=== PATIENT | male | born 1985 | race American Indian/Alaskan Native ===

== ENCOUNTER 2017-02-17 16:27 | Emergency (ER) | payer SELFPAY ==
--- NOTE | 2017-02-17 17:12 | EDM.PDOC ---
ED HPI GENERAL MEDICAL PROBLEM - General Chief Complaint: General Stated Complaint: SORE AND SWOLLEN LIMBS/BREAKING OUT Time Seen by Provider: 02/17/17 16:55 Source of Information: Reports: Patient - History of Present Illness INITIAL COMMENTS - FREE TEXT/NARRATIVE: diagnosed with IV recently having skin lesions, swelling and pain. 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 [No Known Home Meds] 02/17/17 [History] Past Medical History Cardiovascular History: Reports: Hypertension Psychiatric History: Reports: Anxiety Immunologic History: Reports: HIV Social & Family History - Tobacco Use Smoking Status *Q: Former Smoker Years of Tobacco use: 1 Used Tobacco, but Quit: Yes Month Tobacco Last Used: JANUARY 2017 Second Hand Smoke Exposure: No - Caffeine Use Caffeine Use: Reports: None - Alcohol Use Days Per Week of Alcohol Use: 1 Number of Drinks Per Day: 6 Total Drinks Per Week: 6 - Recreational Drug Use Recreational Drug Use: No - Living Situation & Occupation Living situation: Reports: Single Occupation: Employed ED ROS GENERAL - Review of Systems Review Of Systems: ROS reveals no pertinent complaints other than HPI. Constitutional: Reports: No Symptoms HEENT: Reports: No Symptoms Respiratory: Reports: No Symptoms Cardiovascular: Reports: No Symptoms Endocrine: Reports: No Symptoms GI/Abdominal: Reports: Constipation ED EXAM, GENERAL - Physical Exam Exam: See Below Free Text/Narrative:: his body is covered with red lesions. ankles are swollen and inflamed. Exam Limited By: No Limitations General Appearance: Alert, WD/WN Ears: Normal External Exam Throat/Mouth: Normal Inspection Head: Atraumatic Neck: Normal Inspection Respiratory/Chest: No Respiratory Distress Cardiovascular: Normal Peripheral Pulses GI/Abdominal: Normal Bowel Sounds (Male) Exam: No Hernia Rectal (Males) Exam: Normal Exam Back Exam: Normal Inspection Skin Exam: Ecchymosis, Erythema, Increased Warmth, Petechiae, Rash Course - Vital Signs Last Recorded V/S: Last Vital Signs Temp 98.0 F 02/17/17 16:41 Pulse 65 02/17/17 16:41 Resp 16 02/17/17 16:41 BP 147/81 H 02/17/17 16:41 Pulse Ox 94 L 02/17/17 16:41 Departure - Departure Time of Disposition: 17:10 (Will start on prednisone and bactrim for possible cellulitis) Disposition: Home, Self-Care 01 Condition: Fair Clinical Impression: HIV (human immunodeficiency virus infection), Rash, Cellulitis - Discharge Information Forms: ED Department Discharge Additional Instructions: Take your medications as prescribed. follow up with your infection doctor at your regularly scheduled appointment.
== END 2017-02-17 17:15 | disposition home or self-care (01) ==
LOC: CC.ED 16:27
CPT/HCPCS: 99282

== ENCOUNTER 2018-06-23 10:04 | Emergency (ER) | payer BC, MEDICAID ==
[2018-06-23] MEDS ORDERED: fentaNYL 100 MCG/2 ML SDV IVPUSH ONE ×2 (10:42→13:51)
[2018-06-23] MEDS ORDERED: Sodium Chloride 0.9% 1,000 ML IV ONE (10:42)
[2018-06-23 11:04] LABS: CHLORIDE,CL 103 mEq/L (98-106); SODIUM,NA 139 mEq/L (136-145)
[2018-06-23] MEDS ORDERED: Iopamidol 612 MG/ML 100 ML Bottle IVPUSH ONE (11:52)
[2018-06-23] MEDS ORDERED: Ampicillin/Sulbactam Na 3 GM in Sodium Chloride 0.9% 100 ML IV ONE (12:53)
--- NOTE | 2018-06-23 13:18 | EDM.PDOC ---
ED HPI GENERAL MEDICAL PROBLEM - General Chief Complaint: Abdominal Pain Stated Complaint: abdominal pain Time Seen by Provider: 06/23/18 10:55 Source of Information: Reports: Patient History Limitations: Reports: No Limitations - History of Present Illness INITIAL COMMENTS - FREE TEXT/NARRATIVE: Chay is a pleasant 32 year old male with PMH of HIV and pancreatitis, who presents to the ED with c/o mid abdominal pain. He reports starting Friday he developed the abdominal pain. He reports he has not been able to eat or drink much since then. He reports he went to the [facility] ED on 06/21/2018 and told he had gastroenteritis. He reports they gave him IVF and zofran and sent him home. He reports since then his pain has not gotten any better. He reports he tried to drink fluids and gets a flushed feeling. Denies any fever, chills, nausea, vomiting, diarrhea. Reports his pain is located in epigastric/upper abdominal area and radiates to his back. Does report he has had pancreatitis in the past and feels like that's maybe what he has now. Report he last had this in 2011. He reports he has cut back on his ETOH intake drastically since then. He reports he has not had anything to drink since last week. Reports he normally drinks beer. Right Upper Abdominal Pain Score (Numeric/FACES): 10 - Related Data Allergies Allergy/AdvReac Type Severity Reaction Status Date / Time No Known Allergies Allergy Verified 06/23/18 10:21 Home Meds: Home Meds Emtricitab/Rilpivirine/Tenofov [Complera] 1 tab PO DAILY 06/21/18 [History] Past Medical History Cardiovascular History: Reports: Hypertension Gastrointestinal History: Reports: Pancreatitis Psychiatric History: Reports: Anxiety Immunologic History: Reports: HIV Dermatologic History: Reports: Other (See Below) Other Dermatologic History: acne - Infectious Disease History Infectious Disease History: Reports: HIV-Human Immunodeficiency Virus Social & Family History - Tobacco Use Smoking Status *Q: Never Smoker Second Hand Smoke Exposure: Yes - Caffeine Use Caffeine Use: Reports: Soda - Alcohol Use Days Per Week of Alcohol Use: 3 Number of Drinks Per Day: 6 Total Drinks Per Week: 18 - Recreational Drug Use Recreational Drug Use: No - Living Situation & Occupation Living situation: Reports: Single Occupation: Employed ED ROS GENERAL - Review of Systems Review Of Systems: See Below Constitutional: Reports: Decreased Appetite. Denies: Fever, Chills, Weakness, Fatigue Respiratory: Reports: No Symptoms. Denies: Shortness of Breath, Wheezing, Cough , Sputum Cardiovascular: Reports: No Symptoms. Denies: Chest Pain, Dyspnea on Exertion, Edema, Lightheadedness, Syncope Endocrine: Reports: Fatigue GI/Abdominal: Reports: Abdominal Pain, Decreased Appetite. Denies: Constipation , Diarrhea, Flatus, Hematemesis, Hematochezia, Melena, Nausea, Vomiting : Reports: No Symptoms. Denies: Dysuria, Frequency, Urgency Musculoskeletal: Reports: Back Pain Skin: Reports: No Symptoms Neurological: Reports: No Symptoms Psychiatric: Reports: No Symptoms Hematologic/Lymphatic: Reports: No Symptoms Immunologic: Reports: No Symptoms ED EXAM, GI/ABD - Physical Exam Exam: See Below Exam Limited By: No Limitations General Appearance: Alert, WD/WN, Moderate Distress Eyes: Bilateral: EOMI Throat/Mouth: Normal Inspection, Normal Lips, Normal Teeth, Normal Gums, Normal Oropharynx, Normal Voice, No Airway Compromise Head: Atraumatic, Normocephalic Neck: Normal Inspection, Supple, Non-Tender, Full Range of Motion Respiratory/Chest: No Respiratory Distress, Lungs Clear, Normal Breath Sounds, No Accessory Muscle Use, Chest Non-Tender Cardiovascular: Normal Peripheral Pulses, Regular Rate, Rhythm, No Edema, No Gallop, No JVD, No Murmur, No Rub GI/Abdominal Exam: Normal Bowel Sounds, Soft, Guarding, Tender (epigastric/RUQ) Back Exam: Normal Inspection, Full Range of Motion. No: CVA Tenderness (L), CVA Tenderness (R) Neurological: Alert, Oriented, CN II-XII Intact, Normal Cognition, Normal Gait, Normal Reflexes, No Motor/Sensory Deficits Psychiatric: Normal Affect, Normal Mood, Anxious Lymphatic: No Adenopathy Course - Vital Signs Last Recorded V/S: Last Vital Signs Temp 97.8 F 06/23/18 13:49 Pulse 70 06/23/18 13:49 Resp 20 06/23/18 13:49 BP 125/74 06/23/18 13:49 Pulse Ox 100 06/23/18 13:49 - Orders/Labs/Meds Orders: Active Orders 24 hr Category Date Time Status Abdomen Pelvis w Cont [CT] Stat Exams 06/23/18 11:45 Taken LIPASE [REF] Stat Lab 06/23/18 12:30 Received Sodium Chloride 0.9% [Normal Saline] 1,000 ml Med 06/23/18 13:30 Active IV ASDIRECTED Medication Orders Sodium Chloride (Normal Saline) 1,000 mls @ 125 mls/hr IV ASDIRECTED HIWOT Last Admin: 06/23/18 13:51 Dose: 125 mls/hr Labs: Laboratory Tests 06/23/18 06/23/18 06/23/18 Range/Units 10:40 10:40 10:41 WBC 13.8 H (5.0-10.0) 10^3/uL RBC 3.39 L (4.50-6.00) 10^6/uL Hgb 11.2 L (14.0-18.0) g/dL Hct 33.5 L (40.0-54.0) % MCV 98.8 H (82.0-94.0) fL MCH 33.0 H (27.0-32.0) pg MCHC 33.4 (33.0-38.0) g/dL RDW Coeff of Frankie 13.1 (11.0-15.0) % Plt Count 117 L (150-400) 10^3/uL Neut % (Auto) 83.1 (35-85) % Lymph % (Auto) 4.6 L (10-55) % [place] % (Auto) 10.6 (0-16) % Eos % (Auto) 1.4 (0-5) % Baso % (Auto) 0.3 (0-3) % Neut # (Auto) 11.48 H (1.80-7.00) 10^3/uL Lymph # (Auto) 0.63 L (1.00-4.80) 10^3/uL [place] # (Auto) 1.46 H (0.00-0.80) 10^3/uL Eos # (Auto) 0.19 (0.00-0.45) 10^3/uL Baso # (Auto) 0.04 10^3/uL Sodium (136-145) mEq/L Potassium (3.5-5.0) mEq/L Chloride (98-106) mEq/L Carbon Dioxide (21-32) mmol/L BUN (7-18) mg/dL Creatinine (0.7-1.3) mg/dL Est Cr Clr Drug Dosing mL/min Estimated GFR (MDRD) (>=60) mL/min Glucose (75-99) mg/dL Calcium (8.4-10.1) mg/dL Total Bilirubin (0.0-1.0) mg/dL AST (15-37) U/L ALT (12-78) U/L Alkaline Phosphatase (46-116) U/L C-Reactive Protein (0.2-0.8) mg/dL Total Protein (6.4-8.2) g/dL Albumin (3.4-5.0) g/dL Amylase (25-115) U/L Urine Color Yellow (YELLOW) Urine Appearance Clear (CLEAR) Urine pH 6.0 (4.5-8.0) Ur Specific [place] 1.020 (1.003-1.020) Urine Protein 100 H (NEGATIVE) mg/dL Urine Glucose (UA) 250 H (NEGATIVE) mg/dL Urine Ketones Negative (NEGATIVE) mg/dL Urine Occult Blood Large H (NEGATIVE) Urine Nitrite Negative (NEGATIVE) Urine Bilirubin Negative (NEGATIVE) Urine Urobilinogen 1.0 (0.2-1.0) EU/dL Ur Leukocyte Esterase Negative (NEGATIVE) Urine RBC 40-50 H (0-5) /HPF Urine WBC Not seen (0-5) /HPF Hyaline Casts Occasional H (NOT SEEN) /LPF Granular Casts Occasional (NOT SEEN) /LPF RBC Casts Occasional H (NOT SEEN) /LPF Urine Opiates Screen Negative (NEGATIVE) Ur Oxycodone Screen Negative (NEGATIVE) Urine Methadone Screen Negative (NEGATIVE) Ur Barbiturates Screen Negative (NEGATIVE) U Tricyclic Antidepress Negative (NEGATIVE) Ur Phencyclidine Scrn Negative (NEGATIVE) Ur Amphetamine Screen Negative (NEGATIVE) U Methamphetamines Scrn Negative (NEGATIVE) Urine MDMA Screen Negative (NEGATIVE) U Benzodiazepines Scrn Negative (NEGATIVE) Urine Cocaine Screen Negative (NEGATIVE) U Marijuana (THC) Screen Negative (NEGATIVE) 06/23/18 Range/Units 10:50 WBC (5.0-10.0) 10^3/uL RBC (4.50-6.00) 10^6/uL Hgb (14.0-18.0) g/dL Hct (40.0-54.0) % MCV (82.0-94.0) fL MCH (27.0-32.0) pg MCHC (33.0-38.0) g/dL RDW Coeff of Frankie (11.0-15.0) % Plt Count (150-400) 10^3/uL Neut % (Auto) (35-85) % Lymph % (Auto) (10-55) % [place] % (Auto) (0-16) % Eos % (Auto) (0-5) % Baso % (Auto) (0-3) % Neut # (Auto) (1.80-7.00) 10^3/uL Lymph # (Auto) (1.00-4.80) 10^3/uL [place] # (Auto) (0.00-0.80) 10^3/uL Eos # (Auto) (0.00-0.45) 10^3/uL Baso # (Auto) 10^3/uL Sodium 139 (136-145) mEq/L Potassium 3.7 (3.5-5.0) mEq/L Chloride 103 (98-106) mEq/L Carbon Dioxide 25 (21-32) mmol/L BUN 6 L (7-18) mg/dL Creatinine 0.7 (0.7-1.3) mg/dL Est Cr Clr Drug Dosing 167.83 mL/min Estimated GFR (MDRD) > 60 (>=60) mL/min Glucose 192 H D (75-99) mg/dL Calcium 8.6 (8.4-10.1) mg/dL Total Bilirubin 0.7 (0.0-1.0) mg/dL AST 69 H (15-37) U/L ALT 89 H (12-78) U/L Alkaline Phosphatase 134 H (46-116) U/L C-Reactive Protein 9.4 H (0.2-0.8) mg/dL Total Protein 7.0 (6.4-8.2) g/dL Albumin 2.9 L (3.4-5.0) g/dL Amylase 57 (25-115) U/L Urine Color (YELLOW) Urine Appearance (CLEAR) Urine pH (4.5-8.0) Ur Specific [place] (1.003-1.020) Urine Protein (NEGATIVE) mg/dL Urine Glucose (UA) (NEGATIVE) mg/dL Urine Ketones (NEGATIVE) mg/dL Urine Occult Blood (NEGATIVE) Urine Nitrite (NEGATIVE) Urine Bilirubin (NEGATIVE) Urine Urobilinogen (0.2-1.0) EU/dL Ur Leukocyte Esterase (NEGATIVE) Urine RBC (0-5) /HPF Urine WBC (0-5) /HPF Hyaline Casts (NOT SEEN) /LPF Granular Casts (NOT SEEN) /LPF RBC Casts (NOT SEEN) /LPF Urine Opiates Screen (NEGATIVE) Ur Oxycodone Screen (NEGATIVE) Urine Methadone Screen (NEGATIVE) Ur Barbiturates Screen (NEGATIVE) U Tricyclic Antidepress (NEGATIVE) Ur Phencyclidine Scrn (NEGATIVE) Ur Amphetamine Screen (NEGATIVE) U Methamphetamines Scrn (NEGATIVE) Urine MDMA Screen (NEGATIVE) U Benzodiazepines Scrn (NEGATIVE) Urine Cocaine Screen (NEGATIVE) U Marijuana (THC) Screen (NEGATIVE) Meds: Medications Generic Name Dose Route Start Last Admin Trade Name Freq PRN Reason Stop Dose Admin Sodium Chloride 1,000 mls @ 125 mls/hr 06/23/18 13:30 06/23/18 13:51 Normal Saline IV 125 mls/hr ASDIRECTED HIWOT Administration Discontinued Medications Generic Name Dose Route Start Last Admin Trade Name Freq PRN Reason Stop Dose Admin Fentanyl 50 mcg 06/23/18 10:42 06/23/18 11:00 Sublimaze IVPUSH 06/23/18 10:43 50 mcg ONETIME ONE Administration Fentanyl 50 mcg 06/23/18 13:51 Sublimaze IVPUSH 06/23/18 13:52 ONETIME ONE Sodium Chloride 1,000 mls @ 999 mls/hr 06/23/18 10:42 06/23/18 10:59 Normal Saline IV 06/23/18 11:42 999 mls/hr .BOLUS ONE Administration Ampicillin Sodium/Sulbactam 100 mls @ 200 mls/hr 06/23/18 12:53 06/23/18 13: 25 Sodium 3 gm/ Sodium Chloride IV 06/23/18 13:22 200 mls/hr ONETIME ONE Administration Iopamidol 100 ml 06/23/18 11:52 06/23/18 12:11 Isovue-300 (61%) IVPUSH 06/23/18 11:53 137 ml ONETIME ONE Administration - Radiology Interpretation Free Text/Narrative:: Call from radiologist reporting acute appendicitis with appendix dilated to 1.3 cm and mild periappendiceal stranding. Also does have chronic pancreatitis with numerous pseudocysts of the pancreas and greater curvature of the stomach. Unasym ordered. CT Results Date: 06/23/18 CT Results Time: 12:47 - Re-Assessments/Exams Free Text/Narrative Re-Assessment/Exam: 06/23/18 12:47 Call from radiologist reporting acute appendicitis with appendix dilated to 1.3 cm and mild periappendiceal stranding. Also does have chronic pancreatitis with numerous pseudocysts of the pancreas and greater curvature of the stomach. Unasym ordered. 06/23/18 13:[address] findings with patient and father. Discussed need for transfer to area with surgical capabilities. Patient reports he lives in [place] and wishes to transfer to [facility]. 06/23/18 13:24 Consulted with [facility]. Discussed case with Dr. Hernandez (general surgery) who accepted patient for transfer. Will arrange for ALS transfer. Discussed with patient. Risks and benefits of transfer discussed with patient. Risks of transfer include worsening of condition, , MVA enroute. Benefits of transfer include higher level of care & surgical consultation. Risks of nontransfer include worsening of condition, , and no surgical consultation. Benefits of nontransfer include convenience and close to home. Patient verbalized understanding and was agreeable with transfer. Departure - Departure Time of Disposition: 14:46 Disposition: DC/Tfer to [facility] 02 Condition: Good Clinical Impression: Chronic alcoholic pancreatitis, HIV (human immunodeficiency virus infection) Acute appendicitis Qualifiers: Acute appendicitis type: unspecified acute appendicitis type Qualified Code(s) : K35.80 - Unspecified acute appendicitis - Discharge Information *PRESCRIPTION DRUG MONITORING PROGRAM REVIEWED*: Not Applicable *COPY OF PRESCRIPTION DRUG MONITORING REPORT IN PATIENT CHHAYA: Not Applicable Referrals: Daniel Zarate MD [Primary Care Provider] - Forms: ED Department Discharge - Problem List & Annotations (1) Acute appendicitis SNOMED Code(s): 67381150 Code(s): K35.80 - UNSPECIFIED ACUTE APPENDICITIS Status: Acute Qualifiers: Acute appendicitis type: unspecified acute appendicitis type Qualified Code (s): K35.80 - Unspecified acute appendicitis (2) Chronic alcoholic pancreatitis SNOMED Code(s): 050174891 Code(s): K86.0 - ALCOHOL-INDUCED CHRONIC PANCREATITIS Status: Acute (3) HIV (human immunodeficiency virus infection) SNOMED Code(s): 32426578 Code(s): B20 - HUMAN IMMUNODEFICIENCY VIRUS [HIV] DISEASE Status: Acute - Problem List Review Problem List Initiated/Reviewed/Updated: Yes - My Orders Last 24 Hours: My Active Orders 06/23/18 11:45 Abdomen Pelvis w Cont [CT] Stat 06/23/18 12:30 LIPASE [REF] Stat 06/23/18 13:30 Sodium Chloride 0.9% [Normal Saline] 1,000 ml IV ASDIRECTED - Assessment/Plan Last 24 Hours: My Active Orders 06/23/18 11:45 Abdomen Pelvis w Cont [CT] Stat 06/23/18 12:30 LIPASE [REF] Stat 06/23/18 13:30 Sodium Chloride 0.9% [Normal Saline] 1,000 ml IV ASDIRECTED Plan: Transfer to [facility] via [facility].
[2018-06-23] MEDS ORDERED: Sodium Chloride 0.9% 1,000 ML IV SCH (13:30)
[2018-06-23 13:50] VITALS: BP 125/74
== END 2018-06-23 14:45 ==
LOC: CC.ED 10:04
DX: B20 Human immunodeficiency virus [HIV] disease (principal); K86.0 Alcohol-induced chronic pancreatitis; K35.80 Unspecified acute appendicitis; I10 Essential (primary) hypertension; Z77.22 Contact with and (suspected) exposure to environmental tobacco smoke (acute) (chronic)
CPT/HCPCS: 36415; 74177; 80053; 80305; 81001; 82150; 83690; 85025; 86140; 96361; 96365; 96375; 96376; 99285; J0295; J3010; J7030; J7050; Q9967

== ENCOUNTER 2018-08-09 14:39 | Emergency (ER) | payer MEDICAID ==
[2018-08-09] MEDS ORDERED: cefTRIAXone 2 GM Vial IVPUSH ONE (15:08)
[2018-08-09] MEDS ORDERED: Sodium Chloride 0.9% 1,000 ML IV ONE (15:08)
[2018-08-09 15:14] LABS: CHLORIDE,CL 98 mEq/L (98-106); SODIUM,NA 134 mEq/L (136-145)
--- NOTE | 2018-08-09 15:21 | EDM.PDOC ---
ED HPI GENERAL MEDICAL PROBLEM - General Chief Complaint: Abdominal Pain Stated Complaint: "I'm having abdominal pain" Time Seen by Provider: 08/09/18 14:50 Source of Information: Reports: Patient History Limitations: Reports: No Limitations - History of Present Illness INITIAL COMMENTS - FREE TEXT/NARRATIVE: This patient is a 32 year old that presents to the ER. Patient reports having abdominal pain since Friday, that has progressively become worse in nature. The patient reports having nausea and vomited x1. The patient reports that he feels like he has a fever. The patient reprots he has hostory of HIV, Appendix removed in June, and pancreatitis. He reports this feels like his pancreatitis. The patient reports he drinks "a lot" of beer at night. He reports drinking every night. The patient denies drug use. Patent reports that he has been having urine that looks like it has blood in it. Patient denies lockett, dizziness, d, cp, soa, back pain, rashes, bowel changes. Onset Date: 08/07/18 Duration: Day(s): (2), Getting Worse Quality: Reports: Ache Severity: Moderate Improves with: Reports: None Worsens with: Reports: None Associated Symptoms: Reports: Fever/Chills, Loss of Appetite, Nausea/Vomiting. Denies: Confusion, Chest Pain, Cough, cough w sputum, Diaphoresis, Headaches, Malaise, Rash, Seizure, Shortness of Breath, Syncope, Weakness - Related Data Allergies Allergy/AdvReac Type Severity Reaction Status Date / Time No Known Allergies Allergy Verified 08/09/18 14:50 Home Meds: Home Meds Emtricitab/Rilpivirine/Tenofov [Complera] 1 tab PO DAILY 06/21/18 [History] Past Medical History Cardiovascular History: Reports: Hypertension Gastrointestinal History: Reports: Pancreatitis Psychiatric History: Reports: Anxiety Immunologic History: Reports: HIV Dermatologic History: Reports: Other (See Below) Other Dermatologic History: acne - Infectious Disease History Infectious Disease History: Reports: HIV-Human Immunodeficiency Virus Social & Family History - Tobacco Use Smoking Status *Q: Former Smoker Used Tobacco, but Quit: Yes Month/Year Tobacco Last Used: 2015 Second Hand Smoke Exposure: No - Caffeine Use Caffeine Use: Reports: Soda - Alcohol Use Days Per Week of Alcohol Use: 7 Number of Drinks Per Day: 12 Total Drinks Per Week: 84 - Recreational Drug Use Recreational Drug Use: No - Living Situation & Occupation Living situation: Reports: Single Occupation: Employed ED ROS GENERAL - Review of Systems Review Of Systems: See Below Constitutional: Reports: Fever, Chills HEENT: Reports: No Symptoms Respiratory: Reports: No Symptoms Cardiovascular: Reports: No Symptoms Endocrine: Reports: No Symptoms GI/Abdominal: Reports: Abdominal Pain, Nausea, Vomiting. Denies: Diarrhea : Reports: Hematuria Musculoskeletal: Reports: No Symptoms Skin: Reports: No Symptoms Neurological: Reports: No Symptoms Psychiatric: Reports: No Symptoms Hematologic/Lymphatic: Reports: No Symptoms Immunologic: Reports: No Symptoms ED EXAM, GI/ABD - Physical Exam Exam: See Below Exam Limited By: No Limitations General Appearance: Alert, WD/WN, No Apparent Distress, Other (appears chronically ill) Eyes: Bilateral: Normal Appearance Ears: Normal External Exam, Normal Canal, Hearing Grossly Normal, Normal TMs Nose: Normal Inspection, Normal Mucosa, No Blood Throat/Mouth: Normal Inspection, Normal Lips, Normal Teeth, Normal Gums, Normal Oropharynx, Normal Voice, No Airway Compromise Head: Atraumatic, Normocephalic Neck: Normal Inspection, Supple, Non-Tender, Full Range of Motion Respiratory/Chest: No Respiratory Distress, Lungs Clear, Normal Breath Sounds, No Accessory Muscle Use, Chest Non-Tender Cardiovascular: Normal Peripheral Pulses, Regular Rate, Rhythm, No Edema, No Gallop, No JVD, No Murmur, No Rub GI/Abdominal Exam: Normal Bowel Sounds, Soft, No Organomegaly, No Distention, No Abnormal Bruit, No Mass, Tender (generalized. ) Back Exam: Normal Inspection, Full Range of Motion. No: CVA Tenderness (L), CVA Tenderness (R) Extremities: Normal Inspection, Normal Range of Motion, Non-Tender, No Pedal Edema, Normal Capillary Refill Neurological: Alert, Oriented, Normal Gait, No Motor/Sensory Deficits Psychiatric: Normal Affect, Normal Mood Skin Exam: Warm, Dry, Intact, Normal Color, No Rash Lymphatic: No Adenopathy Course - Vital Signs Last Recorded V/S: Last Vital Signs Temp 99.7 F 08/09/18 15:24 Pulse 126 H 08/09/18 15:24 Resp 20 08/09/18 15:24 BP 140/90 08/09/18 15:24 Pulse Ox 99 08/09/18 15:24 - Orders/Labs/Meds Orders: Active Orders 24 hr Category Date Time Status Abdomen Pelvis w Cont [CT] Routine Exams 08/09/18 Taken CULTURE BLOOD [BC] Stat Lab 08/09/18 14:50 Received CULTURE BLOOD [BC] Stat Lab 08/09/18 14:55 Received DRUG SCREEN URINE BIORAD [URCHEM] Stat Lab 08/09/18 15:19 Ordered HEPATITIS PANEL (4) [REF] Stat Lab 08/09/18 14:55 Received Blood Culture x2 Reflex Set [OM.PC] Stat Oth 08/09/18 14:47 Ordered Labs: Laboratory Tests 08/09/18 08/09/18 08/09/18 Range/Units 14:50 14:50 14:55 WBC 17.6 H (5.0-10.0) 10^3/uL RBC 3.74 L (4.50-6.00) 10^6/uL Hgb 12.0 L (14.0-18.0) g/dL Hct 35.3 L (40.0-54.0) % MCV 94.4 H (82.0-94.0) fL MCH 32.1 H (27.0-32.0) pg MCHC 34.0 (33.0-38.0) g/dL RDW Coeff of Frankie 13.2 (11.0-15.0) % Plt Count 91 L (150-400) 10^3/uL Add Manual Diff Yes Neutrophils % (Manual) 90 H (35-85) % Band Neutrophils % 0 (0-5) % Lymphocytes % (Manual) 6 L (21-55) % Monocytes % (Manual) 4 (2-12) % Sodium 134 L (136-145) mEq/L Potassium 3.8 (3.5-5.0) mEq/L Chloride 98 (98-106) mEq/L Carbon Dioxide 24 (21-32) mmol/L BUN 7 (7-18) mg/dL Creatinine 0.6 L (0.7-1.3) mg/dL Est Cr Clr Drug Dosing TNP Estimated GFR (MDRD) > 60 (>=60) mL/min Glucose 145 H (75-99) mg/dL Lactic Acid (0.4-2.0) mmol/L Calcium 8.9 (8.4-10.1) mg/dL Total Bilirubin 2.6 H (0.0-1.0) mg/dL AST 104 H (15-37) U/L ALT 83 H (12-78) U/L Alkaline Phosphatase 231 H (46-116) U/L Total Protein 8.4 H (6.4-8.2) g/dL Albumin 3.1 L (3.4-5.0) g/dL Amylase 39 (25-115) U/L Urine Color (YELLOW) Urine Appearance (CLEAR) Urine pH (4.5-8.0) Ur Specific [place] (1.003-1.020) Urine Protein (NEGATIVE) mg/dL Urine Glucose (UA) (NEGATIVE) mg/dL Urine Ketones (NEGATIVE) mg/dL Urine Occult Blood (NEGATIVE) Urine Nitrite (NEGATIVE) Urine Bilirubin (NEGATIVE) Urine Urobilinogen (0.2-1.0) EU/dL Ur Leukocyte Esterase (NEGATIVE) Urine RBC (0-5) /HPF Urine WBC (0-5) /HPF Ur Epithelial Cells (NOT SEEN) /HPF Urine Mucus (NOT SEEN) /HPF Urine Opiates Screen Negative (NEGATIVE) Ur Oxycodone Screen Negative (NEGATIVE) Urine Methadone Screen Negative (NEGATIVE) Ur Barbiturates Screen Negative (NEGATIVE) U Tricyclic Antidepress Negative (NEGATIVE) Ur Phencyclidine Scrn Negative (NEGATIVE) Ur Amphetamine Screen Negative (NEGATIVE) U Methamphetamines Scrn Negative (NEGATIVE) Urine MDMA Screen Negative (NEGATIVE) U Benzodiazepines Scrn Negative (NEGATIVE) Urine Cocaine Screen Negative (NEGATIVE) U Marijuana (THC) Screen Positive H (NEGATIVE) 08/09/18 08/09/18 Range/Units 14:55 14:56 WBC (5.0-10.0) 10^3/uL RBC (4.50-6.00) 10^6/uL Hgb (14.0-18.0) g/dL Hct (40.0-54.0) % MCV (82.0-94.0) fL MCH (27.0-32.0) pg MCHC (33.0-38.0) g/dL RDW Coeff of Frankie (11.0-15.0) % Plt Count (150-400) 10^3/uL Add Manual Diff Neutrophils % (Manual) (35-85) % Band Neutrophils % (0-5) % Lymphocytes % (Manual) (21-55) % Monocytes % (Manual) (2-12) % Sodium (136-145) mEq/L Potassium (3.5-5.0) mEq/L Chloride (98-106) mEq/L Carbon Dioxide (21-32) mmol/L BUN (7-18) mg/dL Creatinine (0.7-1.3) mg/dL Est Cr Clr Drug Dosing Estimated GFR (MDRD) (>=60) mL/min Glucose (75-99) mg/dL Lactic Acid 1.1 (0.4-2.0) mmol/L Calcium (8.4-10.1) mg/dL Total Bilirubin (0.0-1.0) mg/dL AST (15-37) U/L ALT (12-78) U/L Alkaline Phosphatase (46-116) U/L Total Protein (6.4-8.2) g/dL Albumin (3.4-5.0) g/dL Amylase (25-115) U/L Urine Color Dark yellow (YELLOW) Urine Appearance Slightly cloudy (CLEAR) Urine pH 7.0 (4.5-8.0) Ur Specific [place] 1.020 (1.003-1.020) Urine Protein 100 H (NEGATIVE) mg/dL Urine Glucose (UA) 100 H (NEGATIVE) mg/dL Urine Ketones 40 H (NEGATIVE) mg/dL Urine Occult Blood Moderate H (NEGATIVE) Urine Nitrite Positive H (NEGATIVE) Urine Bilirubin Negative (NEGATIVE) Urine Urobilinogen >=8.0 H (0.2-1.0) EU/dL Ur Leukocyte Esterase Negative (NEGATIVE) Urine RBC 20-30 H (0-5) /HPF Urine WBC Not seen (0-5) /HPF Ur Epithelial Cells Few H (NOT SEEN) /HPF Urine Mucus Few H (NOT SEEN) /HPF Urine Opiates Screen (NEGATIVE) Ur Oxycodone Screen (NEGATIVE) Urine Methadone Screen (NEGATIVE) Ur Barbiturates Screen (NEGATIVE) U Tricyclic Antidepress (NEGATIVE) Ur Phencyclidine Scrn (NEGATIVE) Ur Amphetamine Screen (NEGATIVE) U Methamphetamines Scrn (NEGATIVE) Urine MDMA Screen (NEGATIVE) U Benzodiazepines Scrn (NEGATIVE) Urine Cocaine Screen (NEGATIVE) U Marijuana (THC) Screen (NEGATIVE) Meds: Medications Discontinued Medications Generic Name Dose Route Start Last Admin Trade Name Freq PRN Reason Stop Dose Admin Ceftriaxone Sodium 2 gm 08/09/18 15:08 08/09/18 15:38 Rocephin IVPUSH 08/09/18 15:09 2 gm ONETIME ONE Administration Sodium Chloride 1,000 mls @ 1,000 mls/hr 08/09/18 15:08 08/09/18 15:27 Normal Saline IV 08/09/18 16:07 1,000 mls/hr .BOLUS ONE Administration Morphine Sulfate 4 mg 08/09/18 15:25 08/09/18 15:32 Morphine IVPUSH 08/09/18 15:26 4 mg ONETIME ONE Administration Ondansetron HCl 4 mg 08/09/18 15:25 08/09/18 15:29 Zofran IVPUSH 08/09/18 15:26 4 mg NOW STA Administration - Radiology Interpretation Free Text/Narrative:: CT Abd/Pelvis: Discussed with radiologist: Enlarged pseudocysts to the pancreas. Frances liver. No acute findings. CT Results Date: 08/09/18 CT Results Time: 16:10 - Re-Assessments/Exams Free Text/Narrative Re-Assessment/Exam: 08/09/18 16:16 Patient educated to followup with primary care provider for f/u of pancreatic cysts and f/u of UTI, ER visit. HR 90 now. Afebrile now. Departure - Departure Time of Disposition: 16:17 Disposition: Home, Self-Care 01 Condition: Fair Clinical Impression: Chronic alcoholic pancreatitis, HIV (human immunodeficiency virus infection) Pancreatitis Qualifiers: Chronicity: chronic Pancreatitis type: alcohol induced Qualified Code(s): K86.0 - Alcohol-induced chronic pancreatitis UTI (urinary tract infection) Qualifiers: Urinary tract infection type: acute cystitis Hematuria presence: with hematuria Qualified Code(s): N30.01 - Acute cystitis with hematuria - Discharge Information *PRESCRIPTION DRUG MONITORING PROGRAM REVIEWED*: No *COPY OF PRESCRIPTION DRUG MONITORING REPORT IN PATIENT CHHAYA: No Instructions: How to Care for Yourself When You Have HIV, Urinary Tract Infection, Adult, Chronic Pancreatitis Forms: ED Department Discharge Additional Instructions: Followup with your primary care provider Friday Return to the ER for worsening of condition or any emergent concerns Increase fluids No drinking alcohol Cipro 500mg 1 pill twice a day for 14 days #28 no refill Pyridim 200mg 1 pill three times a day for 2 days #6 no refill Motrin for pain and fever as needed - My Orders Last 24 Hours: My Active Orders 08/09/18 Abdomen Pelvis w Cont [CT] Routine 08/09/18 14:47 Blood Culture x2 Reflex Set [OM.PC] Stat 08/09/18 14:50 CULTURE BLOOD [BC] Stat 08/09/18 14:55 CULTURE BLOOD [BC] Stat HEPATITIS PANEL (4) [REF] Stat 08/09/18 15:19 DRUG SCREEN URINE BIORAD [URCHEM] Stat - Assessment/Plan Last 24 Hours: My Active Orders 08/09/18 Abdomen Pelvis w Cont [CT] Routine 08/09/18 14:47 Blood Culture x2 Reflex Set [OM.PC] Stat 08/09/18 14:50 CULTURE BLOOD [BC] Stat 08/09/18 14:55 CULTURE BLOOD [BC] Stat HEPATITIS PANEL (4) [REF] Stat 08/09/18 15:19 DRUG SCREEN URINE BIORAD [URCHEM] Stat Plan: PLEASE SEE RN NOTE FOR PFSH.
[2018-08-09] MEDS ORDERED: Ondansetron 4 MG/2 ML SDV IVPUSH STA (15:25)
[2018-08-09] MEDS ORDERED: Morphine 4 MG/ML Syringe IVPUSH ONE (15:25)
[2018-08-09 15:27] VITALS: BP 140/90
== END 2018-08-09 16:55 | disposition home or self-care (01) ==
LOC: CC.ED 14:39
DX: K86.0 Alcohol-induced chronic pancreatitis (principal); B20 Human immunodeficiency virus [HIV] disease; N30.01 Acute cystitis with hematuria; I10 Essential (primary) hypertension; Z87.891 Personal history of nicotine dependence
CPT/HCPCS: 36415; 74177; 80053; 80074; 80305-QW; 81001; 82150; 83605; 85025; 87040; 87086; 96361; 96374; 96375; 99284; J0696; J2270; J2405; J7030; Q9967

== ENCOUNTER 2019-04-11 11:30 | Emergency (ER) | payer SELFPAY ==
[2019-04-11 11:33] VITALS: BP 119/80; PULSE 67
--- NOTE | 2019-04-11 12:03 | EDM.PDOC ---
ED HPI GENERAL MEDICAL PROBLEM - General Chief Complaint: General Stated Complaint: weakness Time Seen by Provider: 04/11/19 11:47 Source of Information: Reports: Patient History Limitations: Reports: No Limitations - History of Present Illness INITIAL COMMENTS - FREE TEXT/NARRATIVE: This patient is a 33 year old male that presents to the ER. Patient reports that for the last 1 week having lightheadedness and generally feeling weak. Patient reports that he was seen by [facility] and told nothing was wrong on Friday. Patient reports that he has HIV. Patient reports that he has not taken his HIV medications since July. Patient reports the last time he got a CD4 level drawn was in July. Patient reports that he has called clinic several times to obtain this lab draw, but its also is reported patient has not shown up to clinic appointments. The patient reports that he is scheduled to get the lab drawn here tomorrow. I asked lab about drawing today, but the lab is a send out, and only has survival of 2 days, so unable to draw this lab today. Educated patient about showing up tomorrow for this lab draw. I will order some basic labs and urine today. The patient denies lockett, n, v, d, f, cp, soa, abd pain , congestion, drainage, urinary/bowel changes, rashes, open infected wounds. Onset Date: 04/04/19 Duration: Week(s): (1) Severity: Mild Improves with: Reports: None Worsens with: Reports: None Associated Symptoms: Reports: Weakness (generally). Denies: Confusion, Chest Pain, Cough, cough w sputum, Diaphoresis, Fever/Chills, Headaches, Loss of Appetite, Malaise, Nausea/Vomiting, Rash, Seizure, Shortness of Breath, Syncope - Related Data Allergies Allergy/AdvReac Type Severity Reaction Status Date / Time No Known Allergies Allergy Verified 04/11/19 11:33 Home Meds: Home Meds Ferrous Sulfate [Iron] 2 tab PO DAILY 04/11/19 [History] Past Medical History Cardiovascular History: Reports: Hypertension Gastrointestinal History: Reports: Pancreatitis Psychiatric History: Reports: Anxiety Immunologic History: Reports: HIV Dermatologic History: Reports: Other (See Below) Other Dermatologic History: acne - Infectious Disease History Infectious Disease History: Reports: HIV-Human Immunodeficiency Virus - Past Surgical History GI Surgical History: Reports: Other (See Below) Other GI Surgeries/Procedures: pancreas and spleen procedures Social & Family History - Family History Family Medical History: Noncontributory - Tobacco Use Smoking Status *Q: Current Some Day Smoker Years of Tobacco use: 5 Packs/Tins Daily: 0 - Caffeine Use Caffeine Use: Reports: None - Recreational Drug Use Recreational Drug Use: No - Living Situation & Occupation Living situation: Reports: Single Occupation: Employed ED ROS GENERAL - Review of Systems Review Of Systems: See Below Constitutional: Reports: Weakness (generally) HEENT: Reports: No Symptoms Respiratory: Reports: No Symptoms Cardiovascular: Reports: Lightheadedness Endocrine: Reports: No Symptoms GI/Abdominal: Reports: No Symptoms : Reports: No Symptoms Musculoskeletal: Reports: No Symptoms Skin: Reports: No Symptoms Neurological: Reports: No Symptoms Psychiatric: Reports: No Symptoms Hematologic/Lymphatic: Reports: No Symptoms Immunologic: Reports: No Symptoms ED EXAM, GENERAL - Physical Exam Exam: See Below Exam Limited By: No Limitations General Appearance: Alert, WD/WN, No Apparent Distress Eye Exam: Bilateral Eye: Normal Inspection, PERRL Ears: Normal External Exam, Normal Canal, Hearing Grossly Normal, Normal TMs Ear Exam: Bilateral Ear: Auricle Normal, Canal Normal, TM normal Nose: Normal Inspection, Normal Mucosa, No Blood Throat/Mouth: Normal Inspection, Normal Lips, Normal Teeth, Normal Gums, Normal Oropharynx, No Airway Compromise Head: Atraumatic, Normocephalic Neck: Normal Inspection, Supple, Non-Tender, Full Range of Motion Respiratory/Chest: No Respiratory Distress, Lungs Clear, Normal Breath Sounds, No Accessory Muscle Use, Chest Non-Tender Cardiovascular: Normal Peripheral Pulses, Regular Rate, Rhythm, No Edema, No Gallop, No JVD, No Murmur, No Rub Peripheral Pulses: 2+: Radial (L), Radial (R), Posterior Tibial (L), Posterior Tibial (R) GI/Abdominal: Normal Bowel Sounds, Soft, No Distention, Pelvis Stable, Tender ( mildly diffuse). No: Guarding, Rigid, Rebound Neurological: Alert, Oriented, Normal Cognition, Normal Gait (ambulated to bathroom without difficulty or assistance. ), No Motor/Sensory Deficits Psychiatric: Normal Affect, Normal Mood Skin Exam: Warm, Dry, Intact, Normal Color, No Rash Lymphatic: No Adenopathy Course - Vital Signs Last Recorded V/S: Last Vital Signs Temp 97.4 F 04/11/19 11:31 Pulse 67 09/08/19 11:31 Resp 16 04/11/19 11:31 BP 119/80 04/11/19 11:31 Pulse Ox 100 04/11/19 11:31 - Orders/Labs/Meds Labs: Laboratory Tests 04/11/19 04/11/19 04/11/19 Range/Units 11:58 11:58 12:07 WBC 6.8 (5.0-10.0) 10^3/uL RBC 3.70 L (4.50-6.00) 10^6/uL Hgb 11.3 L (14.0-18.0) g/dL Hct 33.9 L (40.0-54.0) % MCV 91.6 (82.0-94.0) fL MCH 30.5 (27.0-32.0) pg MCHC 33.3 (33.0-38.0) g/dL RDW Coeff of Frankie 16.8 H (11.0-15.0) % Plt Count 55 L (150-400) 10^3/uL Neut % (Auto) 67.1 (35-85) % Lymph % (Auto) 17.6 (10-55) % [place] % (Auto) 13.7 (0-16) % Eos % (Auto) 1.3 (0-5) % Baso % (Auto) 0.3 (0-3) % Neut # (Auto) 4.57 (1.80-7.00) 10^3/uL Lymph # (Auto) 1.20 (1.00-4.80) 10^3/uL [place] # (Auto) 0.93 H (0.00-0.80) 10^3/uL Eos # (Auto) 0.09 (0.00-0.45) 10^3/uL Baso # (Auto) 0.02 10^3/uL Sodium 139 (136-145) mEq/L Potassium 3.8 (3.5-5.0) mEq/L Chloride 103 (98-106) mEq/L Carbon Dioxide 27 (21-32) mmol/L BUN 3 L (7-18) mg/dL Creatinine 0.6 L (0.7-1.3) mg/dL Est Cr Clr Drug Dosing 158.76 mL/min Estimated GFR (MDRD) > 60 (>=60) mL/min Glucose 123 H D (75-99) mg/dL Calcium 8.7 (8.4-10.1) mg/dL Total Bilirubin 0.4 (0.0-1.0) mg/dL AST 52 H (15-37) U/L ALT 51 (12-78) U/L Alkaline Phosphatase 248 H (46-116) U/L Total Protein 7.1 (6.4-8.2) g/dL Albumin 2.7 L (3.4-5.0) g/dL Urine Color Yellow (YELLOW) Urine Appearance Clear (CLEAR) Urine pH 6.0 (4.5-8.0) Ur Specific [place] <= 1.005 (1.003-1.020) Urine Protein Negative (NEGATIVE) mg/dL Urine Glucose (UA) Negative (NEGATIVE) mg/dL Urine Ketones Negative (NEGATIVE) mg/dL Urine Occult Blood Negative (NEGATIVE) Urine Nitrite Negative (NEGATIVE) Urine Bilirubin Negative (NEGATIVE) Urine Urobilinogen 1.0 (0.2-1.0) EU/dL Ur Leukocyte Esterase Negative (NEGATIVE) Departure - Departure Time of Disposition: 12:30 Disposition: Home, Self-Care 01 Condition: Good Clinical Impression: Generalized weakness HIV (human immunodeficiency virus infection) Qualifiers: HIV symptom status: asymptomatic Qualified Code(s): Z21 - Asymptomatic human immunodeficiency virus [HIV] infection status - Discharge Information *PRESCRIPTION DRUG MONITORING PROGRAM REVIEWED*: Not Applicable *COPY OF PRESCRIPTION DRUG MONITORING REPORT IN PATIENT CHHAYA: Not Applicable Instructions: CD4 Count Test, Weakness, [id number] Referrals: PCP,None [Primary Care Provider] - Forms: ED Department Discharge Additional Instructions: Followup with your primary care provider Return to the ER for worsening of condition or any emergent concerns Increase fluids Rest Have CD4 lab drawn tomorrow - Assessment/Plan Plan: PLEASE SEE RN NOTE FOR PFSH.
[2019-04-11 12:22] LABS: CHLORIDE,CL 103 mEq/L (98-106); SODIUM,NA 139 mEq/L (136-145)
== END 2019-04-11 12:38 | disposition home or self-care (01) ==
LOC: CC.ED 11:30
DX: R53.1 Weakness (principal); I10 Essential (primary) hypertension; F17.200 Nicotine dependence, unspecified, uncomplicated; Z21 Asymptomatic human immunodeficiency virus [HIV] infection status
CPT/HCPCS: 36415; 80053; 81003; 85025; 99284

== ENCOUNTER 2019-06-06 15:15 | Emergency (ER) | payer SELFPAY ==
[2019-06-06 15:59] LABS: CHLORIDE,CL 103 mEq/L (98-106); SODIUM,NA 138 mEq/L (136-145)
[2019-06-06] MEDS ORDERED: Ondansetron 4 MG/2 ML SDV IVPUSH STA (16:59)
[2019-06-06] MEDS ORDERED: Iopamidol 755 Mg/ML 100 ML Bottle IVPUSH ONE (17:09)
[2019-06-06] MEDS ORDERED: Sodium Chloride 0.9% 250 ML ONE (17:14)
--- NOTE | 2019-06-06 17:40 | EDM.PDOC ---
ED HPI GENERAL MEDICAL PROBLEM - General Chief Complaint: Gastrointestinal Problem Stated Complaint: "I HAVE PANCREATITIS" Time Seen by Provider: 06/06/19 16:10 Source of Information: Reports: Patient History Limitations: Reports: No Limitations - History of Present Illness INITIAL COMMENTS - FREE TEXT/NARRATIVE: This patient is a 33 year old male that presents to the ER. Patient reports that since last night having abdominal pain, RUQ. He reports having 4 diarrhea episodes and several episodes of vomiting. Patient reports that he feels a little short of breath. Patient reports that he is unaware if blood in vomit or stool, as he says he never looks at it. Patient has hx of HIV and pancreatitis. Patient also reports having history of bleeding from spleen over the summer. Onset Date: 06/05/19 Duration: Day(s): (1), Getting Worse Location: Reports: Abdomen Severity: Moderate Improves with: Reports: None Worsens with: Reports: None Associated Symptoms: Reports: Loss of Appetite, Nausea/Vomiting, Shortness of Breath, Weakness (generally). Denies: Confusion, Chest Pain, Cough, cough w sputum, Diaphoresis, Fever/Chills, Headaches, Malaise, Rash, Seizure, Syncope Right Upper Abdomen Pain Score (Numeric/FACES): 5 - Related Data Allergies Allergy/AdvReac Type Severity Reaction Status Date / Time No Known Allergies Allergy Verified 06/06/19 15:39 Home Meds: Home Meds Ferrous Sulfate [Iron] 2 tab PO DAILY 04/11/19 [History] Past Medical History Cardiovascular History: Reports: Hypertension Gastrointestinal History: Reports: Pancreatitis Psychiatric History: Reports: Anxiety Immunologic History: Reports: HIV Dermatologic History: Reports: Other (See Below) Other Dermatologic History: acne - Infectious Disease History Infectious Disease History: Reports: HIV-Human Immunodeficiency Virus - Past Surgical History GI Surgical History: Reports: Other (See Below) Other GI Surgeries/Procedures: pancreas and spleen procedures Social & Family History - Family History Family Medical History: Noncontributory - Tobacco Use Smoking Status *Q: Never Smoker - Caffeine Use Caffeine Use: Reports: None - Alcohol Use Days Per Week of Alcohol Use: 7 Number of Drinks Per Day: 12 Total Drinks Per Week: 84 Date of Last Drink: 06/06/19 - Recreational Drug Use Recreational Drug Use: No - Living Situation & Occupation Living situation: Reports: Single Occupation: Employed ED ROS GENERAL - Review of Systems Review Of Systems: See Below Constitutional: Reports: Malaise, Weakness, Fatigue, Diaphoresis, Decreased Appetite HEENT: Reports: No Symptoms Respiratory: Reports: Shortness of Breath. Denies: Cough Cardiovascular: Reports: No Symptoms. Denies: Chest Pain, Dyspnea on Exertion, Edema, Lightheadedness, Palpitations, Syncope Endocrine: Reports: No Symptoms GI/Abdominal: Reports: Abdominal Pain, Diarrhea, Nausea, Vomiting : Reports: No Symptoms Musculoskeletal: Reports: No Symptoms Skin: Reports: No Symptoms Neurological: Reports: No Symptoms Psychiatric: Reports: No Symptoms Hematologic/Lymphatic: Reports: No Symptoms Immunologic: Reports: No Symptoms ED EXAM, GI/ABD - Physical Exam Exam: See Below Exam Limited By: No Limitations General Appearance: Alert, WD/WN, Thin, Other (appears chronically ill) Eyes: Bilateral: Pale Conjunctiva Ears: Normal External Exam, Normal Canal, Hearing Grossly Normal, Normal TMs Nose: Normal Inspection, Normal Mucosa, No Blood Throat/Mouth: Normal Inspection, Normal Lips, Normal Teeth, Normal Gums, Normal Oropharynx, Normal Voice, No Airway Compromise Head: Atraumatic, Normocephalic Neck: Normal Inspection, Supple, Non-Tender, Full Range of Motion Respiratory/Chest: No Respiratory Distress, Lungs Clear, Normal Breath Sounds, No Accessory Muscle Use Cardiovascular: Normal Peripheral Pulses, No Edema, No Gallop, No JVD, No Murmur , No Rub, Tachycardia (120 on exam) GI/Abdominal Exam: Normal Bowel Sounds, Soft, No Organomegaly, No Distention, No Abnormal Bruit, No Mass, Pelvis Stable, Tender (RUQ). No: Guarding (Male) Exam: Deferred Rectal (Males) Exam: Deferred Back Exam: Normal Inspection, Full Range of Motion Extremities: Normal Inspection, Normal Range of Motion, Non-Tender, No Pedal Edema, Normal Capillary Refill Neurological: Alert, Oriented, Normal Cognition, Normal Gait, No Motor/Sensory Deficits Psychiatric: Anxious Skin Exam: Warm, Dry, Intact, No Rash, Pallor Lymphatic: No Adenopathy Course - Vital Signs Last Recorded V/S: Last Vital Signs Temp 97.8 F 06/06/19 17:47 Pulse 107 H 06/06/19 17:47 Resp 16 06/06/19 17:47 BP 121/69 06/06/19 17:47 Pulse Ox 100 06/06/19 17:47 - Orders/Labs/Meds Orders: Active Orders 24 hr Category Date Time Status Abdomen Pelvis w Cont [CT] Stat Exams 06/06/19 17:01 Taken RED BLOOD CELLS LP [BBK] Stat Lab 06/06/19 15:39 Results TYPE AND SCREEN [BBK] Stat Lab 06/06/19 15:39 Results Labs: Laboratory Tests 06/06/19 06/06/19 06/06/19 Range/Units 15:39 15:40 15:40 WBC 10.9 H (5.0-10.0) 10^3/uL RBC 2.70 L (4.50-6.00) 10^6/uL Hgb 7.7 L* (14.0-18.0) g/dL Hct 24.5 L (40.0-54.0) % MCV 90.7 (82.0-94.0) fL MCH 28.5 (27.0-32.0) pg MCHC 31.4 L (33.0-38.0) g/dL RDW Coeff of Frankie 13.1 (11.0-15.0) % Plt Count 138 L (150-400) 10^3/uL Add Manual Diff Yes Neutrophils % (Manual) 83 (35-85) % Band Neutrophils % 5 (0-5) % Lymphocytes % (Manual) 4 L (21-55) % Monocytes % (Manual) 8 (2-12) % Hypochromasia 1+ slight H (NOT SEEN) Sodium (136-145) mEq/L Potassium (3.5-5.0) mEq/L Chloride (98-106) mEq/L Carbon Dioxide (21-32) mmol/L BUN (7-18) mg/dL Creatinine (0.7-1.3) mg/dL Est Cr Clr Drug Dosing mL/min Estimated GFR (MDRD) (>=60) mL/min Glucose (75-99) mg/dL Calcium (8.4-10.1) mg/dL Total Bilirubin (0.0-1.0) mg/dL AST (15-37) U/L ALT (12-78) U/L Alkaline Phosphatase (46-116) U/L Total Protein (6.4-8.2) g/dL Albumin (3.4-5.0) g/dL Amylase (25-115) U/L Lipase (73-393) U/L Urine Color Yellow (YELLOW) Urine Appearance Clear (CLEAR) Urine pH 6.5 (4.5-8.0) Ur Specific [place] 1.025 H (1.003-1.020) Urine Protein Negative (NEGATIVE) mg/dL Urine Glucose (UA) Negative (NEGATIVE) mg/dL Urine Ketones Trace H (NEGATIVE) mg/dL Urine Occult Blood Negative (NEGATIVE) Urine Nitrite Negative (NEGATIVE) Urine Bilirubin Small H (NEGATIVE) Urine Urobilinogen 4.0 H (0.2-1.0) EU/dL Ur Leukocyte Esterase Negative (NEGATIVE) Urine RBC Not seen (0-5) /HPF Urine WBC Not seen (0-5) /HPF Ur Epithelial Cells Few H (NOT SEEN) /HPF Amorphous Sediment Moderate H (NOT SEEN) /HPF Urine Mucus Moderate H (NOT SEEN) /HPF Blood Type B POSITIVE Gel Antibody Screen Negative Crossmatch See Detail 06/06/19 Range/Units 15:40 WBC (5.0-10.0) 10^3/uL RBC (4.50-6.00) 10^6/uL Hgb (14.0-18.0) g/dL Hct (40.0-54.0) % MCV (82.0-94.0) fL MCH (27.0-32.0) pg MCHC (33.0-38.0) g/dL RDW Coeff of Frankie (11.0-15.0) % Plt Count (150-400) 10^3/uL Add Manual Diff Neutrophils % (Manual) (35-85) % Band Neutrophils % (0-5) % Lymphocytes % (Manual) (21-55) % Monocytes % (Manual) (2-12) % Hypochromasia (NOT SEEN) Sodium 138 (136-145) mEq/L Potassium 3.9 (3.5-5.0) mEq/L Chloride 103 (98-106) mEq/L Carbon Dioxide 23 (21-32) mmol/L BUN 5 L D (7-18) mg/dL Creatinine 0.7 (0.7-1.3) mg/dL Est Cr Clr Drug Dosing 166.29 mL/min Estimated GFR (MDRD) > 60 (>=60) mL/min Glucose 139 H (75-99) mg/dL Calcium 8.0 L (8.4-10.1) mg/dL Total Bilirubin 1.3 H (0.0-1.0) mg/dL AST 652 H* (15-37) U/L ALT 156 H (12-78) U/L Alkaline Phosphatase 347 H (46-116) U/L Total Protein 7.5 (6.4-8.2) g/dL Albumin 2.7 L (3.4-5.0) g/dL Amylase 38 (25-115) U/L Lipase 132 (73-393) U/L Urine Color (YELLOW) Urine Appearance (CLEAR) Urine pH (4.5-8.0) Ur Specific [place] (1.003-1.020) Urine Protein (NEGATIVE) mg/dL Urine Glucose (UA) (NEGATIVE) mg/dL Urine Ketones (NEGATIVE) mg/dL Urine Occult Blood (NEGATIVE) Urine Nitrite (NEGATIVE) Urine Bilirubin (NEGATIVE) Urine Urobilinogen (0.2-1.0) EU/dL Ur Leukocyte Esterase (NEGATIVE) Urine RBC (0-5) /HPF Urine WBC (0-5) /HPF Ur Epithelial Cells (NOT SEEN) /HPF Amorphous Sediment (NOT SEEN) /HPF Urine Mucus (NOT SEEN) /HPF Blood Type Gel Antibody Screen Crossmatch Meds: Medications Discontinued Medications Generic Name Dose Route Start Last Admin Trade Name Rosario PRN Reason Stop Dose Admin Sodium Chloride Confirm 06/06/19 17:14 06/06/19 17:43 Normal Saline Administered 06/06/19 17:15 25 mls/hr Dose Administration 250 mls @ as directed .ROUTE .STK-MED ONE Iopamidol 100 ml 06/06/19 17:09 06/06/19 17:43 Isovue-370 (76%) IVPUSH 06/06/19 17:10 100 ml ONETIME ONE Administration Morphine Sulfate 4 mg 06/06/19 16:59 06/06/19 17:43 Morphine IVPUSH 06/06/19 17:00 4 mg ONETIME ONE Administration Ondansetron HCl 4 mg 06/06/19 16:59 06/06/19 17:40 Zofran IVPUSH 06/06/19 17:00 4 mg NOW STA Administration - Radiology Interpretation Free Text/Narrative:: Just received ct report: Patient is already at [facility] ER. I called and spoke to their [facility], faxed report directly to the [facility] ER. "Concerning findings on todays ct with interval change in what was previously described as pseudocyst. It is enlarging and in addition there is a new hyperdense blush of contrast within this collection consistent with an acutely bleeding vessel. Uncertain origin of the hyper enhancement but raises the concern for potential erosion of an adjacent vessel. Acute and chronic pancreatitis changes. Numerous additional smaller fluid collection/cystic lesions are slightly increased compared. Hepatic steatosis." CT Results Date: 06/06/19 CT Results Time: 21:05 - Re-Assessments/Exams Free Text/Narrative Re-Assessment/Exam: 06/06/19 17:00 I called and spoke to Dr. Kim about this patient. The patient has requested to be transferred. Which is a good idea anyways due to decreased hgb and elevated liver enzymes, could be surgical gallbladder. Dr. Kim would like to have ct done of patient. They will US when they get there and will be seen in the ER. Blood will be started transfusion here to go on transfer. 06/06/19 16:59 Benefits vs risks discussed with patient and he has accepted the risks. Risk of transfer are mvc, , worsening of condition, bleeding out. Risk of staying in [place] is continued bleeding, , worsening of condition, sepsis. The benefits of transfer are higher level of care, surgical consult, US. The benefits of staying in [place] are close to home. 06/06/19 18:01 HR at discharge now 107 after blood starting. 06/06/19 21:28 [facility] called and asked how many units of blood were given to the patient. I verbally ordered 2 units to be given. I was informed patient got 1 unit started , the 2nd was not sent with EMS due to lab policy. So, patient got 1 unit of blood. Departure - Departure Time of Disposition: 17:45 Disposition: DC/Tfer to Acute Hospital 02 Condition: Serious Clinical Impression: Elevated liver enzymes Anemia Qualifiers: Anemia type: unspecified type Qualified Code(s): D64.9 - Anemia, unspecified Abdominal pain Qualifiers: Abdominal location: right upper quadrant Qualified Code(s): R10.11 - Right upper quadrant pain - Discharge Information *PRESCRIPTION DRUG MONITORING PROGRAM REVIEWED*: Not Applicable *COPY OF PRESCRIPTION DRUG MONITORING REPORT IN PATIENT CHHAYA: Not Applicable Referrals: Ye Eaton, NEHA [Primary Care Provider] - Forms: ED Department Discharge - My Orders Last 24 Hours: My Active Orders 06/06/19 15:39 RED BLOOD CELLS LP [BBK] Stat TYPE AND SCREEN [BBK] Stat 06/06/19 17:01 Abdomen Pelvis w Cont [CT] Stat - Assessment/Plan Last 24 Hours: My Active Orders 06/06/19 15:39 RED BLOOD CELLS LP [BBK] Stat TYPE AND SCREEN [BBK] Stat 06/06/19 17:01 Abdomen Pelvis w Cont [CT] Stat Plan: PLEASE SEE RN NOTE FOR PFSH.
[2019-06-06 17:48] VITALS: BP 121/69; PULSE 107
== END 2019-06-06 18:00 ==
LOC: CC.ED 15:15
DX: R10.11 Right upper quadrant pain (principal); D64.9 Anemia, unspecified; R94.5 Abnormal results of liver function studies; I10 Essential (primary) hypertension; Z21 Asymptomatic human immunodeficiency virus [HIV] infection status
CPT/HCPCS: 36415; 36430; 74177; 80053; 81001; 82150; 83690; 85025; 86850; 86900; 86901; 86920; 86922; 96374; 96375; 99285; J2270; J2405; J7050; P9016; Q9967

== ENCOUNTER 2019-07-23 00:22 | Emergency (ER) | payer MEDICAID ==
[2019-07-23 01:06] VITALS: BP 114/79; PULSE 103
== END 2019-07-23 00:45 | disposition left against medical advice (07) ==
LOC: CC.ED 00:22
DX: Z53.21 Procedure and treatment not carried out due to patient leaving prior to being seen by health care provider (principal)

== ENCOUNTER 2019-07-23 17:55 | Emergency (ER) | payer MEDICAID ==
[2019-07-23] MEDS ORDERED: Ondansetron 4 MG/2 ML SDV IVPUSH ONE (18:30)
[2019-07-23] MEDS ORDERED: Sodium Chloride 0.9% 1,000 ML IV SCH (18:30)
[2019-07-23] MEDS ORDERED: Pantoprazole 40 MG Vial IVPUSH ONE ×2 (18:31→18:37)
--- NOTE | 2019-07-23 18:39 | EDM.PDOC ---
ED HPI GENERAL MEDICAL PROBLEM - General Chief Complaint: General Stated Complaint: dizzy, nausea Time Seen by Provider: 07/23/19 18:15 Source of Information: Reports: Patient History Limitations: Reports: No Limitations - History of Present Illness INITIAL COMMENTS - FREE TEXT/NARRATIVE: Patient to the emergency department complaining of epigastric abdominal pain with nausea and vomiting. The patient also advising that he has had some blood in his stools as well as having dark stools. The patient does have a history of gastric ulcers as well as currently being treated for HIV. The patient does complain of some generalized weakness and fatigue. The patient denies any ear, nose, throat symptoms denies any usual neck, back pain or stiffness. The patient denies any chest pain pressure heaviness no palpitations or irregular heartbeats. The patient denies any shortness of breath. The patient denies any UTI type symptoms. The patient advises that he has felt hot and has had chills. The patient advises that the symptoms have been off and on for the last several days. Onset: Gradual Duration: Day(s): Location: Reports: Abdomen Quality: Reports: Ache, Same as Previous Episode Severity: Moderate Improves with: Reports: None Worsens with: Reports: Eating Associated Symptoms: Reports: Cough, Fever/Chills, Loss of Appetite, Nausea/ Vomiting, Weakness. Denies: Confusion, Chest Pain, Rash, Shortness of Breath Treatments DIGITAL TECHNICIAN: Reports: Other (see below) (none) Abdominal Pain Score (Numeric/FACES): 1 - Related Data Allergies Allergy/AdvReac Type Severity Reaction Status Date / Time No Known Allergies Allergy Verified 07/23/19 00:49 Home Meds: Home Meds Ferrous Sulfate [Iron] 2 tab PO DAILY 04/11/19 [History] Past Medical History Cardiovascular History: Reports: Hypertension Gastrointestinal History: Reports: Pancreatitis Psychiatric History: Reports: Anxiety Immunologic History: Reports: HIV Dermatologic History: Reports: Other (See Below) Other Dermatologic History: acne - Infectious Disease History Infectious Disease History: Reports: HIV-Human Immunodeficiency Virus - Past Surgical History GI Surgical History: Reports: Other (See Below) Other GI Surgeries/Procedures: pancreas and spleen procedures Social & Family History - Family History Family Medical History: Noncontributory - Caffeine Use Caffeine Use: Reports: None - Living Situation & Occupation Living situation: Reports: Single Occupation: Employed ED ROS GENERAL - Review of Systems Review Of Systems: See Below Constitutional: Reports: Fever, Chills, Weakness HEENT: Reports: No Symptoms. Denies: Ear Pain, Nose Pain, Throat Pain Respiratory: Reports: Cough, Sputum (Yellow). Denies: Shortness of Breath, Wheezing, Pleuritic Chest Pain, Hemoptysis Cardiovascular: Reports: No Symptoms. Denies: Chest Pain GI/Abdominal: Reports: Abdominal Pain, Black Stool, Bloody Stool, Nausea, Vomiting. Denies: Constipation, Diarrhea, Distension : Reports: No Symptoms Musculoskeletal: Denies: Neck Pain, Back Pain Skin: Reports: No Symptoms. Denies: Rash, Erythema Neurological: Reports: No Symptoms. Denies: Dizziness, Headache Psychiatric: Reports: No Symptoms ED EXAM, GENERAL - Physical Exam Exam: See Below Exam Limited By: No Limitations General Appearance: Alert, Thin Ears: Normal External Exam, Hearing Grossly Normal Nose: Normal Inspection, Normal Mucosa Throat/Mouth: Normal Inspection, Normal Lips, Normal Oropharynx, Normal Voice, No Airway Compromise Head: Atraumatic, Normocephalic Neck: Normal Inspection, Supple, Non-Tender, Full Range of Motion Respiratory/Chest: No Respiratory Distress, Lungs Clear, Normal Breath Sounds, Chest Non-Tender Cardiovascular: Normal Peripheral Pulses, Regular Rate, Rhythm, No Murmur Peripheral Pulses: 2+: Radial (L), Radial (R), Posterior Tibial (L), Posterior Tibial (R) GI/Abdominal: Normal Bowel Sounds, Soft, Tender (Epigastric tenderness with palpation). No: Distended, Guarding, Rigid, Rebound Rectal (Males) Exam: Normal Rectal Tone, Heme + Stool Back Exam: Normal Inspection, Full Range of Motion Extremities: Normal Inspection, Normal Range of Motion, Non-Tender, Normal Capillary Refill Neurological: Alert, Oriented, Normal Cognition, No Motor/Sensory Deficits Psychiatric: Normal Affect, Normal Mood Skin Exam: Warm, Dry, Intact, Normal Color, No Rash EKG INTERPRETATION EKG Date: 07/23/19 Time: 18:09 Rhythm: NSR [place]: Normal P-Wave: Present QRS: Normal EKG Interpretation Comments: Twelve-lead EKG shows an underlying sinus tachycardia with a ventricular rate of 108 there is some possible early repolarization however this is somewhat limited to the inferior leads. There is no reciprocal changes. Etiology is unknown however it does not appear to be in acute injury. There also does not appear to be any acute ischemia. Course - Vital Signs Text/Narrative:: 190 the patient was evaluated in the emergency department, his white count is normal H&H is stable at this point with a hemoglobin of 11.5. His liver function tests are elevated. Lipase is normal. Alcohol is 84. Chest x-ray does not show any acute pneumonias. Patient stool Hemoccults positive for blood. As the patient does have epigastric pain he does have black-colored stool and is positive for blood. The patient had an IV started of normal saline at 100 mL an hour he was also given Protonix 80 mg IV push and an 8 mg an hour drip. In addition to this the patient does have nausea vomiting here which the gastric cold is pending. The patient was given Zofran 4 mg IV push as well. As it appears as if the patient does have an upper GI bleed. He would need to be transferred to a tertiary care center. I have called [facility] in [place] the phone number [phone] and I have spoken to Dr. Neville urgency department physician who has accepted the patient in transfer. The patient will be transferred by EMS see the nursing notes for details of the transfer. Risk and benefits have been explained to the patient including the risk of worsening condition, , and motor vehicle accident among a few as well as the benefit being evaluated by mission commander who is not available at [facility]. All this has been discussed with the patient and they agree with the transfer. Last Recorded V/S: Last Vital Signs Temp 37.7 C 07/23/19 18:00 Pulse 103 H 07/23/19 18:00 Resp 20 07/23/19 18:00 BP 123/86 07/23/19 18:00 Pulse Ox 99 07/23/19 18:00 - Orders/Labs/Meds Orders: Active Orders 24 hr Category Date Time Status CXR [Chest 2V] [CR] Stat Exams 07/23/19 18:39 Ordered CULTURE BLOOD [BC] Stat Lab 07/23/19 18:40 Ordered CULTURE BLOOD [BC] Stat Lab 07/23/19 18:40 Ordered LACTIC ACID [CHEM] Stat Lab 07/23/19 18:40 Ordered OCCULT BLOOD SCREEN [OP] Stat Lab 07/23/19 18:24 Ordered UA RFX JULIO AND CULT IF INDIC [URIN] Stat Lab 07/23/19 18:24 Ordered Pantoprazole [ProTONIX IV] 80 mg Med 07/23/19 18:45 Active Sodium Chloride 0.9% [Normal Saline] 100 ml IV .CONTINUOUS Sodium Chloride 0.9% [Normal Saline] 1,000 ml Med 07/23/19 18:30 Active IV ASDIRECTED Blood Culture x2 Reflex Set [OM.PC] Stat Oth 07/23/19 18:40 Ordered Medication Orders Sodium Chloride (Normal Saline) 1,000 mls @ 100 mls/hr IV ASDIRECTED HIWOT Last Admin: 07/23/19 19:00 Dose: 100 mls/hr Pantoprazole Sodium 80 mg/ (Sodium Chloride) 100 mls @ 10 mls/hr IV .CONTINUOUS HIWOT Last Admin: 07/23/19 19:00 Dose: 10 mls/hr Labs: Laboratory Tests 07/23/19 07/23/19 Range/Units 18:23 18:23 WBC 5.9 (5.0-10.0) 10^3/uL RBC 3.71 L (4.50-6.00) 10^6/uL Hgb 11.5 L (14.0-18.0) g/dL Hct 33.8 L (40.0-54.0) % MCV 91.1 (82.0-94.0) fL MCH 31.0 (27.0-32.0) pg MCHC 34.0 (33.0-38.0) g/dL RDW Coeff of Frankie 17.1 H (11.0-15.0) % Plt Count 63 L (150-400) 10^3/uL Neut % (Auto) 83.4 (35-85) % Lymph % (Auto) 8.5 L (10-55) % [place] % (Auto) 7.7 (0-16) % Eos % (Auto) 0.2 (0-5) % Baso % (Auto) 0.2 (0-3) % Neut # (Auto) 4.88 (1.80-7.00) 10^3/uL Lymph # (Auto) 0.50 L (1.00-4.80) 10^3/uL [place] # (Auto) 0.45 (0.00-0.80) 10^3/uL Eos # (Auto) 0.01 (0.00-0.45) 10^3/uL Baso # (Auto) 0.01 10^3/uL Sodium 141 (136-145) mEq/L Potassium 4.1 (3.5-5.0) mEq/L Chloride 104 (98-106) mEq/L Carbon Dioxide 26 (21-32) mmol/L BUN 3 L (7-18) mg/dL Creatinine 0.7 (0.7-1.3) mg/dL Est Cr Clr Drug Dosing 166.21 mL/min Estimated GFR (MDRD) > 60 (>=60) mL/min Glucose 137 H (75-99) mg/dL Calcium 8.3 L (8.4-10.1) mg/dL Total Bilirubin 0.7 (0.0-1.0) mg/dL AST 151 H (15-37) U/L ALT 102 H (12-78) U/L Alkaline Phosphatase 397 H (46-116) U/L Troponin I < 0.017 (0.00-0.06) ng/mL C-Reactive Protein < 0.2 L (0.2-0.8) mg/dL Total Protein 7.3 (6.4-8.2) g/dL Albumin 2.2 L (3.4-5.0) g/dL Lipase 34 L (73-393) U/L Ethyl Alcohol 84 H (0-3) mg/dL Meds: Medications Generic Name Dose Route Start Last Admin Trade Name Freq PRN Reason Stop Dose Admin Sodium Chloride 1,000 mls @ 100 mls/hr 07/23/19 18:30 07/23/19 19:00 Normal Saline IV 100 mls/hr ASDIRECTED HIWOT Administration Pantoprazole Sodium 80 mg/ 100 mls @ 10 mls/hr 07/23/19 18:45 07/23/19 19:00 Sodium Chloride IV 10 mls/hr .CONTINUOUS HIWOT Administration Discontinued Medications Generic Name Dose Route Start Last Admin Trade Name Freq PRN Reason Stop Dose Admin Ondansetron HCl 4 mg 07/23/19 18:30 07/23/19 18:40 Zofran IVPUSH 07/23/19 18:31 4 mg ONETIME ONE Administration Pantoprazole Sodium 1,831 mg 07/23/19 18:31 Protonix Iv IVPUSH 07/23/19 18:32 ONETIME ONE Pantoprazole Sodium 80 mg 07/23/19 18:37 07/23/19 18:49 Protonix Iv IVPUSH 07/23/19 18:38 80 mg ONETIME ONE Administration Departure - Departure Time of Disposition: 19:12 Disposition: DC/Tfer to Acute Hospital 02 Condition: Good Clinical Impression: Upper GI bleed, Cough, Acute alcohol intoxication Abdominal pain Qualifiers: Abdominal location: right upper quadrant Qualified Code(s): R10.11 - Right upper quadrant pain - Discharge Information *PRESCRIPTION DRUG MONITORING PROGRAM REVIEWED*: Not Applicable *COPY OF PRESCRIPTION DRUG MONITORING REPORT IN PATIENT CHHAYA: Not Applicable Referrals: Ye Eaton PA-C [Primary Care Provider] - Forms: ED Department Discharge Sepsis Event Note - Focused Exam Vital Signs: Vital Signs Temp Pulse Resp BP Pulse Ox 07/23/19 18:00 37.7 C 103 H 20 123/86 99 Date Exam was Performed: 07/23/19 Time Exam was Performed: 19:09 - Problem List & Annotations (1) Abdominal pain SNOMED Code(s): 85029928 Code(s): R10.9 - UNSPECIFIED ABDOMINAL PAIN Status: Acute Priority: High Current Visit: Yes Qualifiers: Abdominal location: epigastric Qualified Code(s): R10.13 - Epigastric pain (2) Acute alcohol intoxication SNOMED Code(s): 74826026, 92327459 Code(s): F10.929 - ALCOHOL USE, UNSPECIFIED WITH INTOXICATION, UNSPECIFIED Status: Acute Priority: Medium Current Visit: Yes (3) Cough SNOMED Code(s): 59380402 Code(s): R05 - COUGH Status: Acute Priority: Medium Current Visit: Yes (4) Upper GI bleed SNOMED Code(s): 20077470 Code(s): K92.2 - GASTROINTESTINAL HEMORRHAGE, UNSPECIFIED Status: Acute Priority: High Current Visit: Yes (5) Elevated liver enzymes SNOMED Code(s): 025993285 Code(s): R74.8 - ABNORMAL LEVELS OF OTHER SERUM ENZYMES Status: Acute Priority: High Current Visit: No (6) HIV (human immunodeficiency virus infection) SNOMED Code(s): 95519187 Code(s): B20 - HUMAN IMMUNODEFICIENCY VIRUS [HIV] DISEASE Status: Acute Priority: High Current Visit: No Qualifiers: HIV symptom status: asymptomatic Qualified Code(s): Z21 - Asymptomatic human immunodeficiency virus [HIV] infection status - Problem List Review Problem List Initiated/Reviewed/Updated: Yes - My Orders Last 24 Hours: My Active Orders 07/23/19 18:24 OCCULT BLOOD SCREEN [OP] Stat UA RFX JULIO AND CULT IF INDIC [URIN] Stat 07/23/19 18:30 Sodium Chloride 0.9% [Normal Saline] 1,000 ml IV ASDIRECTED 07/23/19 18:39 CXR [Chest 2V] [CR] Stat 07/23/19 18:40 CULTURE BLOOD [BC] Stat CULTURE BLOOD [BC] Stat LACTIC ACID [CHEM] Stat Blood Culture x2 Reflex Set [OM.PC] Stat 07/23/19 18:45 Pantoprazole [ProTONIX IV] 80 mg Sodium Chloride 0.9% [Normal Saline] 100 ml IV .CONTINUOUS - Assessment/Plan Last 24 Hours: My Active Orders 07/23/19 18:24 OCCULT BLOOD SCREEN [OP] Stat UA RFX JULIO AND CULT IF INDIC [URIN] Stat 07/23/19 18:30 Sodium Chloride 0.9% [Normal Saline] 1,000 ml IV ASDIRECTED 07/23/19 18:39 CXR [Chest 2V] [CR] Stat 07/23/19 18:40 CULTURE BLOOD [BC] Stat CULTURE BLOOD [BC] Stat LACTIC ACID [CHEM] Stat Blood Culture x2 Reflex Set [OM.PC] Stat 07/23/19 18:45 Pantoprazole [ProTONIX IV] 80 mg Sodium Chloride 0.9% [Normal Saline] 100 ml IV .CONTINUOUS Plan: Patient will be transferred to [facility] by EMS. Risk and benefits have been explained to the patient including the risk of worsening condition, , and motor vehicle accident among a few as well as the benefit being evaluated by mission commander who is not available at [facility]. All this has been discussed with the patient and they agree with the transfer.
[2019-07-23] MEDS ORDERED: Pantoprazole 80 MG in Sodium Chloride 0.9% 100 ML IV SCH (18:45)
[2019-07-23 18:51] LABS: CHLORIDE,CL 104 mEq/L (98-106); SODIUM,NA 141 mEq/L (136-145)
[2019-07-23] MEDS ORDERED: Sodium Chloride 0.9% 1,000 ML IV ONE (19:18)
[2019-07-23 20:15] VITALS: BP 109/69; PULSE 88
== END 2019-07-23 20:50 ==
LOC: CC.ED 17:55
DX: K92.2 Gastrointestinal hemorrhage, unspecified (principal); F10.129 Alcohol abuse with intoxication, unspecified; D69.6 Thrombocytopenia, unspecified; Z21 Asymptomatic human immunodeficiency virus [HIV] infection status
CPT/HCPCS: 36415; 71046; 80053; 83605; 83690; 84484; 85025; 86140; 87040; 93005; 96365; 96366; 96375; 99285-25; C9113; G0480; J2405; J7030; J7050

== ENCOUNTER 2019-08-18 06:49 | Emergency (ER) | payer MEDICAID ==
[2019-08-18 07:23] LABS: CHLORIDE,CL 101 mEq/L (98-106); SODIUM,NA 137 mEq/L (136-145)
[2019-08-18] MEDS: Ondansetron 4 MG/2 ML SDV IVPUSH STA (07:35)
[2019-08-18] MEDS: Sodium Chloride 0.9% 1,000 ML IV SCH (07:38)
--- NOTE | 2019-08-18 07:53 | EDM.PDOC ---
ED HPI GENERAL MEDICAL PROBLEM - General Chief Complaint: Gastrointestinal Problem Stated Complaint: PUKING UP BLOOD Time Seen by Provider: 08/18/19 07:20 Source of Information: Reports: Patient History Limitations: Reports: No Limitations - History of Present Illness INITIAL COMMENTS - FREE TEXT/NARRATIVE: Chay is a 33 yo male who presents via private vehicle to the ED with complaints of throwing up blood. States he started feeling sick a few days ago. Admits at onset symptoms were dizziness, fatigue and nausea. Does have history of nausea with home prescription of Zofran. States last night symptoms got worse and started having emesis with blood in it. He states he did have nosebleeds as well which were difficult to stop. States his stools have been black as well. He is on an HIV medication which he admits makes him feel sick at times. He states he hasn't been able to eat for the last 3 days but did drink a six pack of beer last night. He denies any abdominal pain. - Related Data Allergies Allergy/AdvReac Type Severity Reaction Status Date / Time No Known Allergies Allergy Verified 07/23/19 19:36 Home Meds: Home Meds Ferrous Sulfate [Iron] 2 tab PO DAILY 04/11/19 [History] Emtricitab/Rilpiviri/Tenof Ala [Odefsey Tablet] 1 each PO DAILY 08/18/19 [ History] Ondansetron [Zofran] 1 tab PO Q6HR PRN 08/18/19 [History] PARoxetine [Paxil] 20 mg PO DAILY 08/18/19 [History] hydrOXYzine HCL [Hydroxyzine HCl] 2 tab PO TID 08/18/19 [History] Past Medical History Cardiovascular History: Reports: Hypertension Gastrointestinal History: Reports: Pancreatitis Psychiatric History: Reports: Anxiety Hematologic History: Reports: Anemia, Blood Transfusion(s) Immunologic History: Reports: HIV Oncologic (Cancer) History: Reports: Colon Other Oncologic History: pre-diagnosed. Dermatologic History: Reports: Other (See Below) Other Dermatologic History: acne - Infectious Disease History Infectious Disease History: Reports: HIV-Human Immunodeficiency Virus - Past Surgical History Cardiovascular Surgical History: Reports: None GI Surgical History: Reports: Other (See Below) Other GI Surgeries/Procedures: pancreas and spleen procedures Social & Family History - Family History Family Medical History: Noncontributory - Tobacco Use Smoking Status *Q: Current Some Day Smoker Years of Tobacco use: 17 Packs/Tins Daily: 0.5 - Caffeine Use Caffeine Use: Reports: None - Recreational Drug Use Recreational Drug Use: No - Living Situation & Occupation Living situation: Reports: Single Occupation: Employed ED ROS GENERAL - Review of Systems Review Of Systems: See Below Constitutional: Reports: Chills, Weakness, Fatigue, Decreased Appetite. Denies : Fever HEENT: Reports: Nosebleed Respiratory: Reports: No Symptoms. Denies: Shortness of Breath, Cough Cardiovascular: Reports: Lightheadedness. Denies: Palpitations GI/Abdominal: Reports: Black Stool, Diarrhea, Decreased Appetite, Hematemesis, Nausea, Vomiting. Denies: Abdominal Pain : Reports: No Symptoms Skin: Reports: No Symptoms Neurological: Reports: No Symptoms ED EXAM, GI/ABD - Physical Exam Exam: See Below Exam Limited By: No Limitations General Appearance: Alert, No Apparent Distress, Anxious Eyes: Bilateral: Normal Appearance Ears: Normal External Exam, Normal Canal, Hearing Grossly Normal, Normal TMs Nose: Normal Inspection, No Blood (dried epistaxis noted) Throat/Mouth: Normal Inspection, Normal Teeth, Normal Oropharynx, No Airway Compromise, Other (dry oral mucos) Head: Atraumatic, Normocephalic, Other (multiple lesions noted to face, chronic ) Neck: Normal Inspection, Supple Respiratory/Chest: No Respiratory Distress, Lungs Clear, Normal Breath Sounds, No Accessory Muscle Use Cardiovascular: Regular Rate, Rhythm, No Edema, No Murmur GI/Abdominal Exam: Normal Bowel Sounds, Soft, Non-Tender, No Organomegaly, No Distention Rectal (Males) Exam: Black Stool, Decreased Rectal Tone, Heme + Stool Extremities: Normal Inspection, No Pedal Edema Neurological: Alert, Oriented, Normal Cognition, No Motor/Sensory Deficits Psychiatric: Anxious Skin Exam: Warm, Dry, Intact, Normal Color, No Rash Course - Vital Signs Last Recorded V/S: Last Vital Signs Temp 99.0 F 08/18/19 06:54 Pulse 79 08/18/19 06:54 Resp 16 08/18/19 06:54 BP 112/62 08/18/19 06:54 Pulse Ox 100 08/18/19 06:54 - Orders/Labs/Meds Orders: Active Orders 24 hr Category Date Time Status ETOH [ETHANOL BLOOD MEDICAL] [CHEM] Stat Lab 08/18/19 07:39 Ordered INR,PT,PROTHROMBIN TIME [COAG] Stat Lab 08/18/19 07:37 Ordered PTT,PARTIAL THROMBOPLSTIN TIME [COAG] Stat Lab 08/18/19 07:37 Ordered Sodium Chloride 0.9% [Normal Saline] 1,000 ml Med 08/18/19 07:45 Active IV ASDIRECTED Medication Orders Sodium Chloride (Normal Saline) 1,000 mls @ 150 mls/hr IV ASDIRECTED HIWOT Last Admin: 08/18/19 07:38 Dose: 150 mls/hr Labs: Laboratory Tests 08/18/19 08/18/19 Range/Units 07:04 07:04 WBC 4.3 L (5.0-10.0) 10^3/uL RBC 3.31 L (4.50-6.00) 10^6/uL Hgb 10.6 L (14.0-18.0) g/dL Hct 31.6 L (40.0-54.0) % MCV 95.5 H (82.0-94.0) fL MCH 32.0 (27.0-32.0) pg MCHC 33.5 (33.0-38.0) g/dL RDW Coeff of Frankie 14.7 (11.0-15.0) % Plt Count 43 L* (150-400) 10^3/uL Neut % (Auto) 73.8 (35-85) % Lymph % (Auto) 13.1 (10-55) % [place] % (Auto) 12.4 (0-16) % Eos % (Auto) 0.7 (0-5) % Baso % (Auto) 0 (0-3) % Neut # (Auto) 3.16 (1.80-7.00) 10^3/uL Lymph # (Auto) 0.56 L (1.00-4.80) 10^3/uL [place] # (Auto) 0.53 (0.00-0.80) 10^3/uL Eos # (Auto) 0.03 (0.00-0.45) 10^3/uL Baso # (Auto) 0.00 10^3/uL Sodium 137 (136-145) mEq/L Potassium 3.6 (3.5-5.0) mEq/L Chloride 101 (98-106) mEq/L Carbon Dioxide 28 (21-32) mmol/L BUN 2 L (7-18) mg/dL Creatinine 0.6 L (0.7-1.3) mg/dL Est Cr Clr Drug Dosing 187.11 mL/min Estimated GFR (MDRD) > 60 (>=60) mL/min Glucose 157 H (75-99) mg/dL Calcium 7.4 L (8.4-10.1) mg/dL Total Bilirubin 0.7 (0.0-1.0) mg/dL AST 130 H (15-37) U/L ALT 59 (12-78) U/L Alkaline Phosphatase 364 H (46-116) U/L C-Reactive Protein 0.2 (0.2-0.8) mg/dL Total Protein 6.9 (6.4-8.2) g/dL Albumin 2.0 L (3.4-5.0) g/dL Amylase 16 L (25-115) U/L Lipase 27 L (73-393) U/L Meds: Medications Generic Name Dose Route Start Last Admin Trade Name Rosario PRN Reason Stop Dose Admin Sodium Chloride 1,000 mls @ 150 mls/hr 08/18/19 07:45 08/18/19 07:38 Normal Saline IV 150 mls/hr ASDIRECTED HIWOT Administration Discontinued Medications Generic Name Dose Route Start Last Admin Trade Name Frekassandra PRN Reason Stop Dose Admin Ondansetron HCl 4 mg 08/18/19 07:24 08/18/19 07:35 Zofran IVPUSH 08/18/19 07:25 4 mg ONETIME STA Administration Departure - Departure Time of Disposition: 08:17 Disposition: DC/Tfer to [facility] 02 Clinical Impression: Thrombocytopenia GI bleed Qualifiers: GI bleed type/associated pathology: gastritis Gastritis type: alcoholic Qualified Code(s): K29.21 - Alcoholic gastritis with bleeding - Discharge Information Referrals: PCP,Unknown [Ordering Only Provider] - Sepsis Event Note - Evaluation Sepsis Screening Result: No Definite Risk - Focused Exam Vital Signs: Vital Signs Temp Pulse Resp BP Pulse Ox 08/18/19 06:54 99.0 F 79 16 112/62 100 Date Exam was Performed: 08/18/19 Time Exam was Performed: 07:48 - Problem List & Annotations (1) Upper GI bleed SNOMED Code(s): 00808214 Code(s): K92.2 - GASTROINTESTINAL HEMORRHAGE, UNSPECIFIED Status: Acute Priority: High Current Visit: No (2) Thrombocytopenia SNOMED Code(s): 706372407 Code(s): D69.6 - THROMBOCYTOPENIA, UNSPECIFIED Status: Acute Current Visit: Yes - My Orders Last 24 Hours: My Active Orders 08/18/19 07:37 INR,PT,PROTHROMBIN TIME [COAG] Stat PTT,PARTIAL THROMBOPLSTIN TIME [COAG] Stat 08/18/19 07:39 ETOH [ETHANOL BLOOD MEDICAL] [CHEM] Stat 08/18/19 07:45 Sodium Chloride 0.9% [Normal Saline] 1,000 ml IV ASDIRECTED - Assessment/Plan Last 24 Hours: My Active Orders 08/18/19 07:37 INR,PT,PROTHROMBIN TIME [COAG] Stat PTT,PARTIAL THROMBOPLSTIN TIME [COAG] Stat 08/18/19 07:39 ETOH [ETHANOL BLOOD MEDICAL] [CHEM] Stat 08/18/19 07:45 Sodium Chloride 0.9% [Normal Saline] 1,000 ml IV ASDIRECTED Plan: Patient had heme + stool. Concerns of upper GI bleed with thrombocytopenia. Elected to consult with [facility] in [place]. Consultation with ED physician at [facility], Dr. Vishnu Keating, who kindly accepted transfer. Advised starting Protonix drip at 8mg/hr with 80mg bolus. Patient has been stable in ED. Arranged ALS transfer for direct admission. Risks and benefits of transfer discussed with Chay. Risks of transfer included worsening of condition, MVA, . Benefits of transfer included specialty care and intervention possibly that are not offered at this local facility. Risks of non-transfer included lack of specialized treatment/ interventions, worsening of condition, . Benefits of non-transfer included staying in familiar environment and close to home. Chay verbalized understanding and is in agreement with transfer.
[2019-08-18] MEDS: Pantoprazole 40 MG Vial IVPUSH SCH (07:56)
[2019-08-18] MEDS: Pantoprazole 40 MG Vial IVPUSH ONE (08:23)
[2019-08-18] MEDS: Pantoprazole 80 MG in Sodium Chloride 0.9% 100 ML IV SCH (08:24)
[2019-08-18 08:30] VITALS: BP 114/60; PULSE 87
[2019-08-18] MEDS ORDERED: Ondansetron 4 MG Tab.DIS ONE (08:51)
[2019-08-18] MEDS: Ondansetron 4 MG Tab.DIS PO ONE (09:10)
== END 2019-08-18 09:10 ==
LOC: CC.ED 06:49
DX: K29.21 Alcoholic gastritis with bleeding (principal); D69.6 Thrombocytopenia, unspecified; I10 Essential (primary) hypertension; F41.9 Anxiety disorder, unspecified; F17.210 Nicotine dependence, cigarettes, uncomplicated; Z79.899 Other long term (current) drug therapy
CPT/HCPCS: 36415; 80053; 82150; 83690; 85025; 85610; 85730; 86140; 96361; 96365; 96375; 99285-25; A9270-GY; C9113; G0480; J2405; J7030; J7050

== ENCOUNTER 2019-09-12 09:25 | Emergency (ER) | payer MEDICAID ==
[2019-09-12] MEDS ORDERED: Acetaminophen 500 MG Tab PO ONE (10:05)
[2019-09-12] MEDS ORDERED: Sodium Chloride 0.9% 1,000 ML IV ONE (10:05)
[2019-09-12 10:44] LABS: CHLORIDE,CL 99 mEq/L (98-106); SODIUM,NA 134 mEq/L (136-145)
[2019-09-12] MEDS ORDERED: Ondansetron 4 MG/2 ML SDV IVPUSH STA (10:52)
[2019-09-12] MEDS ORDERED: Sodium Chloride 0.9% 1,000 ML IV SCH (11:00)
[2019-09-12] MEDS ORDERED: cefTRIAXone 1 GM Vial IVPUSH ONE (11:25)
[2019-09-12] MEDS ORDERED: LORazepam 2 MG/ML Syringe IVPUSH ONE (11:34)
[2019-09-12] MEDS ORDERED: Pantoprazole 40 MG Vial IVPUSH ONE (11:37)
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
[2019-09-12] MEDS ORDERED: Pantoprazole 40 MG Vial IVPUSH SCH (11:45)
[2019-09-12] MEDS ORDERED: Iopamidol 755 Mg/ML 100 ML Bottle IVPUSH ONE (11:52)
[2019-09-12] MEDS ORDERED: Sodium Chloride 0.9% 0 ML ONE (12:05)
[2019-09-12] MEDS ORDERED: Sodium Chloride 0.9% 100 ML ONE (12:06)
[2019-09-12] MEDS ORDERED: Bacitracin/Neomycin/Polymyxin B Oint 0.9 GM U/D Packet ONE (13:10)
[2019-09-12] MEDS ORDERED: Sodium Chloride 0.9% 250 ML IV SCH (14:30)
[2019-09-12 15:14] VITALS: BP 93/45; PULSE 109
== END 2019-09-12 15:40 ==
LOC: CC.ED 09:25
DX: K92.2 Gastrointestinal hemorrhage, unspecified (principal); F10.120 Alcohol abuse with intoxication, uncomplicated; D64.9 Anemia, unspecified; Z21 Asymptomatic human immunodeficiency virus [HIV] infection status; I10 Essential (primary) hypertension; F41.9 Anxiety disorder, unspecified; Z79.899 Other long term (current) drug therapy
CPT/HCPCS: 36415; 36430; 71046; 74177; 80053; 80307; 81003; 82150; 83605; 83690; 85014; 85018; 85025; 85610; 86140; 86850; 86900; 86901; 86920; 86922; 87040; 87804; 93005; 96361; 96374; 96375; 99285-25; A9270-GY; C9113; J0696; J2060; J2405; J7030; J7050; P9016; Q9967

== ENCOUNTER 2019-10-09 22:30 | Emergency (ER) | payer MEDICAID ==
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
[2019-10-09 23:16] LABS: CHLORIDE,CL 102 mEq/L (98-106); SODIUM,NA 134 mEq/L (136-145)
[2019-10-09] MEDS ORDERED: Pantoprazole 40 MG Vial IVPUSH ONE (23:20)
[2019-10-09] MEDS ORDERED: Ondansetron 4 MG/2 ML SDV IVPUSH STA (23:25)
[2019-10-09] MEDS ORDERED: Pantoprazole 80 MG in Sodium Chloride 0.9% 100 ML IV SCH (23:30)
[2019-10-10 00:41] VITALS: BP 114/58; PULSE 87
== END 2019-10-10 01:09 ==
LOC: CC.ED 22:30
DX: K29.21 Alcoholic gastritis with bleeding (principal); I10 Essential (primary) hypertension; F41.9 Anxiety disorder, unspecified; B20 Human immunodeficiency virus [HIV] disease; D64.9 Anemia, unspecified; Z79.899 Other long term (current) drug therapy
CPT/HCPCS: 36415; 36430; 80053; 80307; 82150; 83690; 85025; 86850; 86900; 86901; 86920; 86922; 96365; 96375; 96376; 99285; C9113; J2270; J2405; J7050; P9016